=== PATIENT | female | born 1970 | race Caucasian/White ===

== ENCOUNTER → 2018-07-14 | Outpatient (CLI) | payer OTHER ==
[~2018-07-14] MED LIST: NORCO 5-325 TA1 EACH PO; ZANTAC 150MG T150 M1 PO
== END ==
LOC: M.ULTRA 13:42
DX: E04.1 Nontoxic single thyroid nodule (principal)

== ENCOUNTER → 2019-01-11 | Outpatient (CLI) | payer OTHER | LOC: M.RAD 13:51 | DX: R59.0 Localized enlarged lymph nodes (principal) ==